=== PATIENT | female | born 1995 | race Two or more races ===

== ENCOUNTER 2017-05-12 15:24 | Emergency (ER) | payer SELFPAY ==
[~2017-05-12] VITALS: Ht 147.3 cm; Wt 74.8 kg
[~2017-05-12 15:24] MED LIST: FER325T PO; Pantoprazole Sodium Sesquihydr PO
[2017-05-12 15:44] VITALS: BP 132/81
== END 2017-05-12 16:28 | disposition home or self-care (01) ==
LOC: ER 15:24
DX: J01.10 Acute frontal sinusitis, unspecified (principal)

== ENCOUNTER 2018-05-28 10:53 | Emergency (ER) | payer SELFPAY ==
[~2018-05-28] VITALS: Ht 137.2 cm; Wt 69.4 kg
[2018-05-28 12:46] VITALS: BP 118/79
[2018-05-28] MEDS ORDERED: KETOROLAC TROMETH 60MG/2ML VIAL IM ONE (13:30)
== END 2018-05-28 14:05 | disposition home or self-care (01) ==
LOC: ER 10:56
DX: M54.42 Lumbago with sciatica, left side (principal)
CPT/HCPCS: 96372; 99283; J1885

== ENCOUNTER 2018-10-08 09:31 | Inpatient (IN) | payer MEDICAID | END 2018-10-10 18:30 | disposition home or self-care (01) | LOC: TELE-CENTR 21:05 → ER 09:31 → TELE 16:55 → TELE-CENTR 21:14 | DX: G40.909 Epilepsy, unspecified, not intractable, without status epilepticus (principal); D50.9 Iron deficiency anemia, unspecified ==

== ENCOUNTER 2022-12-23 17:54 | Emergency (ER) | payer MEDICAID ==
[~2022-12-23] VITALS: Ht 149.9 cm; Wt 81.4 kg
[~2022-12-23 17:54] MED LIST changes: -Pantoprazole Sodium Sesquihydr PO
[2022-12-23 19:08] LABS: Basophils # (auto) 0.1 10 ^3/uL (0-0.2); Basophils % (auto) 0.9 % (0.0-2.0); Eosinophils # (auto) 0.1 10 ^3/uL (0-0.8); Eosinophils % (auto) 1.5 % (0.0-7.0); Hematocrit 31.1 % (36.0-46.0); Lymphocytes # (auto) 3.6 10 ^3/uL (0.4-5.4); Lymphocytes % (auto) 40.2 % (10.0-50.0); Mean Corpuscular Hemoglobin 16.2 pg (28.0-32.0); Mean Corpuscular Hgb Conc. 28.9 g/dL (32.0-36.0); Monocytes # (auto) 0.6 10 ^3/uL (0-1.3); Monocytes % (auto) 6.5 % (0.0-12.0); Neutrophils # (auto) 4.5 10 ^3/uL (1.6-8.6); Neutrophils % (auto) 50.9 % (37.0-80.0); Red Blood Cells 5.55 10^6/uL (4.0-5.20); Red Cell Distribution Width 19.3 % (11.8-14.3); White Blood Cell 8.9 10^3/uL (4.4-10.8)
[2022-12-23 19:10] LABS: Albumin 3.9 g/dL (3.4-5.0); Calcium 8.6 mg/dL (8.5-10.1); Potassium 4.5 mmol/L (3.5-5.1)
[2022-12-23 19:13] LABS: BUN/Creatinine Ratio 21.2 (10.0-20.0); Bilirubin, Total 0.3 mg/dL (0.2-1.0); Total Protein 7.9 g/dL (6.4-8.2)
[2022-12-23 20:29] LABS: Urine Bacteria MOD /hpf (None Seen); Urine Blood 3+ /uL (Negative); Urine Mucus FEW (None Seen); Urine Specific Gravity 1.029 (1.001-1.035); Urine WBC 1 /hpf (0 - 5)
[2022-12-23 20:34] LABS: Alcohol, Urine < 3.0 mg/dL (0-10); Amphetamine Screen, Urine NEGATIVE (NEGATIVE); Barbiturate Scree,Urine NEGATIVE (NEGATIVE); Benzodiazephine Screen, Urine NEGATIVE (NEGATIVE); Cannabinoid Screen, Urine NEGATIVE (NEGATIVE); Cocaine Screen, Urine NEGATIVE (NEGATIVE); Opiate Scree,Urine NEGATIVE (NEGATIVE); Phencyclidine Screen, Urine NEGATIVE (NEGATIVE)
[2022-12-23 22:38] VITALS: BP 118/82
[2022-12-24] MEDS ORDERED: CEPH500T PO (00:51)
[2022-12-24] MEDS ORDERED: MECL1TAB32 PO (00:51)
== END 2022-12-24 01:53 | disposition home or self-care (01) ==
LOC: ER 17:54
DX: N39.0 Urinary tract infection, site not specified (principal); R42 Dizziness and giddiness; Z98.890 Other specified postprocedural states; Z79.899 Other long term (current) drug therapy
CPT/HCPCS: 36415; 70450; 71046; 80053; 80307; 81001; 85025; 93005

== ENCOUNTER 2024-04-24 17:06 | Emergency (ER) | payer MEDICAID ==
[~2024-04-24] VITALS: Ht 149.9 cm; Wt 68.0 kg
[~2024-04-24 17:06] MED LIST changes: +CEPH500T PO; +MECL-90 PO
[2024-04-24 17:53] VITALS: BP 124/79; PULSE 91; RESP 16; O2SAT 100
== END 2024-04-24 17:57 | disposition home or self-care (01) ==
LOC: ER 17:06
DX: O26.892 Other specified pregnancy related conditions, second trimester (principal); R10.9 Unspecified abdominal pain; Z3A.22 22 weeks gestation of pregnancy

== ENCOUNTER 2024-04-24 18:00 | Observation (INO) | payer MEDICAID ==
[~2024-04-24] VITALS: Ht 149.9 cm; Wt 64.4 kg
[2024-04-24 19:39] LABS: Basophils # (auto) 0.1 10 ^3/uL (0-0.2); Eosinophils # (auto) 0.2 10 ^3/uL (0-0.8); Lymphocytes # (auto) 3.3 10 ^3/uL (0.4-5.4); Monocytes # (auto) 0.5 10 ^3/uL (0-1.3)
[2024-04-24 19:40] LABS: Basophils % (auto) 0.8 % (0.0-2.0); Eosinophils % (auto) 1.8 % (0.0-7.0); Hematocrit 36.9 % (36.0-46.0); Hemoglobin 11.6 g/dL (12.2-16.2); Lymphocytes % (auto) 33.4 % (10.0-50.0); Mean Corpuscular Hemoglobin 21.1 pg (28.0-32.0); Mean Corpuscular Hgb Conc. 31.5 g/dL (32.0-36.0); Monocytes % (auto) 4.8 % (0.0-12.0); Neutrophils # (auto) 5.8 10 ^3/uL (1.6-8.6); Neutrophils % (auto) 59.2 % (37.0-80.0); Platelet Count (auto) 340 10^3/uL (140-450); White Blood Cell 9.7 10^3/uL (4.4-10.8)
[2024-04-24 20:11] LABS: Amphetamine Screen, Urine Neg (NEGATIVE); Barbiturate Scree,Urine Neg (NEGATIVE); Benzodiazephine Screen, Urine Neg (NEGATIVE); Cocaine Screen, Urine Neg (NEGATIVE)
[2024-04-24 20:12] LABS: Cannabinoid Screen, Urine Neg (NEGATIVE); Opiate Scree,Urine Neg (NEGATIVE); Phencyclidine Screen, Urine Neg (NEGATIVE)
[2024-04-24 20:13] LABS: Alanine Aminotransferase 19 U/L (7-40); Albumin 4.3 g/dL (3.2-4.8); Alkaline Phosphatase 81 U/L (46-116); Anion Gap 10 (5-15); Aspartate Aminotransferase 16 U/L (13-40); BUN/Creatinine Ratio 13.1 (10.0-20.0); Blood Urea Nitrogen 8 mg/dL (9-23); Calcium 9.8 mg/dL (8.7-10.4); Carbon Dioxide 21 mmol/L (20-31); Chloride 107 mmol/L (98-107); Glucose 104 mg/dL (74-106); Potassium 3.7 mmol/L (3.5-5.1); Sodium 138 mmol/L (136-145)
[2024-04-24 20:14] LABS: Bilirubin, Total 0.2 mg/dL (0.2-1.0); Total Protein 7.6 g/dL (5.7-8.2)
[2024-04-24 20:19] LABS: Anisocytosis Slight; Hypochromia Moderate; Platelet Estimate Adequate
== END 2024-04-24 20:35 | disposition home or self-care (01) ==
LOC: LDRP 18:00
PROVIDERS: ADMIT Obstetrics & Gynecology; ATTEND Obstetrics & Gynecology
DX: O02.1 Missed abortion (principal); Z3A.15 15 weeks gestation of pregnancy; Z79.899 Other long term (current) drug therapy
CPT/HCPCS: 36415; 76805; 80053; 80307; 83036; 85025; 86850; 86900; 86901; G0378; 59025; 81002; 94760